=== PATIENT | male | born 1985 | race American Indian/Alaskan Native ===

== ENCOUNTER 2020-11-30 09:55 | Emergency (ER) | payer SELFPAY ==
--- NOTE | 2020-11-30 10:10 | Emergency Department Report ---
ED Abdominal Pain HPI - General Chief Complaint: Urogenital-Male Stated Complaint: DARK URINE; HARD TO URINATE PUI?: No Time Seen by Provider: 11/30/20 10:06 Source: patient Mode of arrival: Ambulatory Limitations: No Limitations - History of Present Illness Initial Comments: 34 YO COMES TO ER WITH CO DIFFICULTY URINATING AND HAVING BM. NO PENILE DISCHARGE. NO CONCERNS FOR STI. NO BACK PAIN. NO N/V/D. NO FEVER OR CHILLS. PT IS AMBULATORY AND NON ILL APPEARING ON EXAM PT STATES HE HAD THIS IN THE PAST WHEN HE HAD KIDNEY STONES. PT IS A [employer]- GOING BACK ON THE ROAD IN AM -: Gradual, days(s) Quality: cramping Consistency: intermittent Improves With: nothing Worsens With: nothing Associated Symptoms: denies other symptoms. denies: nausea, vomiting, diarrhea, fever, chills, constipation, dysuria, hematemesis, hematochezia, melena, hematuria, anorexia, syncope - Related Data Previous Rx's Medication Instructions Recorded Last Taken Type Magnesium Citrate [Citrate of 296 ml PO ONCE #1 bottle 11/30/20 Unknown Rx Magnesia] Allergies Allergy/AdvReac Type Severity Reaction Status Date / Time No Known Allergies Allergy Unverified 11/30/20 11:38 ED Review of Systems ROS: Stated complaint: BURNING/DISCHARGE Other details as noted in HPI Comment: All other systems reviewed and negative ED Past Medical Hx - Past Medical History Previous Medical History?: Yes Additional medical history: K STONES - Surgical History Past Surgical History?: No - Family History Family history: no significant - Social History Smoking Status: Never Smoker Substance Use Type: Alcohol - Medications Home Medications: Home Medications Medication Instructions Recorded Confirmed Last Taken Type Magnesium Citrate [Citrate of 296 ml PO ONCE #1 bottle 11/30/20 Unknown Rx Magnesia] ED Physical Exam - General Limitations: No Limitations General appearance: alert, in no apparent distress - Head Head exam: Present: atraumatic, normocephalic - Eye Eye exam: Present: normal appearance - ENT ENT exam: Present: mucous membranes moist - Neck Neck exam: Present: normal inspection - Respiratory Respiratory exam: Present: normal lung sounds bilaterally. Absent: respiratory distress - Cardiovascular Cardiovascular Exam: Present: regular rate, normal rhythm. Absent: systolic murmur, diastolic murmur, rubs, gallop - GI/Abdominal GI/Abdominal exam: Present: soft, normal bowel sounds - Rectal Rectal exam: Present: deferred - Extremities Exam Extremities exam: Present: normal inspection - Back Exam Back exam: Present: normal inspection - Neurological Exam Neurological exam: Present: alert, oriented X3 - Psychiatric Psychiatric exam: Present: normal affect, normal mood - Skin Skin exam: Present: warm, dry, intact, normal color. Absent: rash ED Course Vital Signs 11/30/20 11/30/20 11/30/20 10:01 10:04 13:02 Temperature 97.8 F 98.6 F Pulse Rate 83 69 Respiratory 18 16 Rate Blood Pressure 124/76 110/71 O2 Sat by Pulse 98 98 100 Oximetry ED Medical Decision Making - Lab Data Result diagrams: 11/30/20 11:02 11/30/20 11:02 - Radiology Data Radiology results: report reviewed, image reviewed NO STONES - Medical Decision Making Labs 11/30/20 11/30/20 11/30/20 10:16 11:02 11:02 Letcher % (Auto) 10.0 H Eos % (Auto) 1.8 Letcher # (Auto) 0.6 Eos # (Auto) 0.1 Baso # (Auto) 0.0 Seg Neutrophils % 60.3 Seg Neutrophils # 3.5 Sodium 139 Potassium 4.0 Chloride 102.8 Carbon Dioxide 24 Anion Gap 16 BUN 8 L Creatinine 0.9 Estimated GFR > 60 BUN/Creatinine Ratio 9 Glucose 110 H Calcium 9.2 Urine Color Yellow Urine Turbidity Clear Urine pH 6.0 Ur Specific Kinde 1.010 Urine Protein <15 mg/dl Urine Glucose (UA) Neg Urine Ketones Neg Urine Blood Sm Urine Nitrite Neg Urine Bilirubin Neg Urine Urobilinogen 2.0 Ur Leukocyte Esterase Neg Urine WBC (Auto) < 1.0 Urine RBC (Auto) 1.0 Vital Signs 11/30/20 11/30/20 11/30/20 10:01 10:04 13:02 Temperature 97.8 F 98.6 F Pulse Rate 83 69 Respiratory 18 16 Rate Blood Pressure 124/76 110/71 O2 Sat by Pulse 98 98 100 Oximetry LABS NOTED UA NOTED CT NOTED NO STONE NO UTI NO STI CONCERNS ON REEVAL PT ENDORSES CONSTIPATION- HE DID NOT LINK THE SYMPTOMS IN HIS MIND DC HOME WITH RX FOR MG CITRATE. HAS BEEN EDUCATED ON PREVENTING CONSTIPATION. VERBALIZES UNDERSTANDING OF DC PLAN OF CARE INCLUDING DIET, MEDS, ACTIVITY AND FOLLOWUP - Differential Diagnosis UTI/STI/K STONE Critical care attestation.: If time is entered above; I have spent that time in minutes in the direct care of this critically ill patient, excluding procedure time. ED Disposition Clinical Impression: Constipation Disposition: 01 HOME / SELF CARE / HOMELESS Is pt being admited?: No Does the pt Need Aspirin: No Condition: Stable Instructions: Constipation, Adult Additional Instructions: STAY WELL HYDRATED WITH WATER MOTRIN OR TYLENOL FOR PAIN MED ORDERED TODAY FOR CONSTIPATION INCREASE FIBER IN DIET FOLLOW UP WITH PCP AND OR UROLOGY IF PROBLEMS PERSIST REFERRAL BELOW Prescriptions: Magnesium Citrate [Citrate of Magnesia] 296 ml PO ONCE #1 bottle Referrals: PRIMARY CAREMD [Primary Care Provider] - 3-5 Days JESUS ODELL MD [Staff Physician] - 3-5 Days JAD ARANGO MD [Staff Physician] - 3-5 Days Time of Disposition: 14:36
[2020-11-30 11:37] LABS: BUN/Creatinine Ratio 9; Blood Urea Nitrogen 8 mg/dL (9-20); Calcium 9.2 mg/dL (8.4-10.2); Hemolysis Index 25
[2020-11-30 11:44] LABS: Basophils % (Auto) 0.8 % (0.0-1.8); Eosinophils # (Auto) 0.1 K/mm3 (0.0-0.4); Eosinophils % (Auto) 1.8 % (0.0-4.3); Hematocrit 44.4 % (35.5-45.6); Hemoglobin 14.9 gm/dl (11.8-15.2); Lymphocytes # (Auto) 1.6 K/mm3 (1.2-5.4); Lymphocytes % (Auto) 27.1 % (13.4-35.0); Mean Corpuscular HGB Conc 34 % (32-34); Mean Corpuscular Volume 95 fl (84-94); Monocytes # (Auto) 0.6 K/mm3 (0.0-0.8); Platelet Count 180 K/mm3 (140-440); Red Blood Count 4.65 M/mm3 (3.65-5.03); Red Cell Distribution Width 13.3 % (13.2-15.2)
[2020-11-30 12:04] LABS: Bilirubin,Urine NEG (Negative); Blood,Urine SM (Negative); Color,Urine Yellow (Yellow); Protein,Urine <15 mg/dL mg/dL (Negative)
[2020-11-30 12:53] LABS: WBC,Urine < 1.0 /HPF (0.0-6.0)
[2020-11-30 13:08] VITALS: BP 110/71
--- NOTE | 2020-11-30 13:58 | Cat Scan Report ---
CT ABDOMEN AND PELVIS WITHOUT CONTRAST INDICATION / CLINICAL INFORMATION: flank pain. TECHNIQUE: Axial CT images were obtained through the abdomen and pelvis without IV contrast. All CT scans at this location are performed using CT dose reduction for ALARA by means of automated exposure control. COMPARISON: None available. FINDINGS: LOWER CHEST: No significant abnormality. LIVER: No significant abnormality. GALLBLADDER: No significant abnormality. BILE DUCTS: No significant abnormality. PANCREAS: No significant abnormality. SPLEEN: No significant abnormality. ADRENALS: No significant abnormality. RIGHT KIDNEY / URETER: No significant abnormality. LEFT KIDNEY / URETER: No significant abnormality. STOMACH / SMALL BOWEL: No significant abnormality. COLON: Mild colonic stool burden APPENDIX: No significant abnormality. PERITONEUM: No free fluid. No free air. No fluid collection. LYMPH NODES: No significant adenopathy. AORTA / ARTERIES: No significant abnormality. IVC / VEINS: No significant abnormality. URINARY BLADDER: No significant abnormality. REPRODUCTIVE ORGANS: No significant abnormality. ADDITIONAL FINDINGS: None. SKELETAL SYSTEM: No significant abnormality. IMPRESSION: 1. No acute abnormality identified. No radiopaque urinary tract calculi or hydronephrosis. 2. Mild colonic stool burden which can be seen with constipation in the proper clinical setting. Signer Name: Aldo Marsh MD Signed: 11/30/2020 1:54 PM Workstation Name: [employer]
== END 2020-11-30 14:42 | disposition home or self-care (01) ==
LOC: ED 09:55
DX: K59.00 Constipation, unspecified (principal); F10.20 Alcohol dependence, uncomplicated
CPT/HCPCS: 36415; 74176; 80048; 81001; 85025; 99284